=== PATIENT | female | born 1995 | race Caucasian/White ===

== ENCOUNTER 2024-05-01 12:00 | Emergency (ER) | payer MEDICAID ==
[~2024-05-01] VITALS: Ht 167.6 cm; Wt 56.7 kg
[~2024-05-01 12:00] MED LIST: Ativan0.5 MG PO; CEPH500 PO; CHLO5 PO; CLON.1 PO; Catapres0.1 MG PO; LORA.5 PO; SULTRIDS PO
[2024-05-01 12:07] VITALS: BP 133/95
[2024-05-01] MEDS ORDERED: ACYC800 PO (12:20)
== END 2024-05-01 12:19 | disposition home or self-care (01) ==
LOC: ER 12:00
DX: B00.9 Herpesviral infection, unspecified (principal); Z76.0 Encounter for issue of repeat prescription; Z87.891 Personal history of nicotine dependence; Z88.0 Allergy status to penicillin
CPT/HCPCS: 99281